=== PATIENT | female | born 1995 | race Caucasian/White ===

== ENCOUNTER → 2018-10-02 11:00 | Outpatient (CLI) | payer OTHER, MEDICAID, SELFPAY ==
[2018-10-02 12:04] LABS: Add Manual Diff / Slide Review NO; Appearance Urine UA CLEAR; Basophils Absolute Auto 0 /uL (0-100); Basophils Percent Auto 0.3 % (0-2); Bilirubin Urine UA NEGATIVE (NEGATIVE); Color Urine UA YELLOW; Eosinophils Absolute Auto 100 /uL (0-450); Eosinophils Percent Auto 0.6 % (2-4); Glucose Urine UA NEGATIVE (Negative); Hematocrit 40.2 % (36-46); Ketones Urine UA NEGATIVE (NEGATIVE); Leukocyte Esterase Urine UA NEGATIVE (NEGATIVE); Lymphocytes Absolute Auto 1900 /uL (1100-4500); Lymphocytes Percent Auto 21.2 % (25-40); Mean Corpuscular HGB Conc 34.8 % (30-36); Mean Corpuscular Hemoglobin 30.9 PG (26-34); Mean Corpuscular Volume 88.7 fL (80-100); Monocytes Absolute Auto 600 /uL (0-900); Monocytes Percent Auto 6.8 % (3-14); Neutrophils Absolute Auto 6300 /uL (1500-7000); Neutrophils Percent Auto 71.1 % (50-75); Nitrite Urine UA NEGATIVE (Negative); Occult Blood Urine UA TRACE-LYSED (Negative); Platelet Count 184 X10^3/uL (150-400); Protein Urine UA 1+ (Negative); Red Blood Cell Count 4.54 X10^6/uL (4.0-5.2); Red Cell Distribution Width 12.7 % (11.6-14.8); Specific Gravity Urine UA 1.025 (1.000-1.035); Urobilinogen Urine UA 0.2 E.U./dL (0.2); White Blood Cell Count 8.8 X10^3/uL (4.5-11.0); pH Urine UA 5.5 (4.5-8.0)
[2018-10-02 15:18] LABS: Hepatitis B Surface Antigen NEGATIVE s/c (NEGATIVE); Rubella Antibody IgG 11.1 IU/mL (>15)
[2018-10-02 15:34] LABS: HIV 1 and 2 Antibody NEGATIVE (NEGATIVE); Hep C Virus Ab w/Reflex Quant NEGATIVE s/c (NEGATIVE)
[2018-10-04 13:12] LABS: RPR Screen Nonreactive (Nonreactive)
[2018-10-04 14:56] LABS: Varicella IgG Antibody < 135.00 Index (< 135.00)
== END ==
PROVIDERS: Visit Provider Specialist
DX: Z34.91 Encounter for supervision of normal pregnancy, unspecified, first trimester (principal)
CPT/HCPCS: 36415; 80055; 81003; 86703; 86787; 86803; 86850; 86900; 86901; 87077; 87086

== ENCOUNTER → 2018-12-07 14:51 | Outpatient (CLI) | payer OTHER, MEDICAID, SELFPAY ==
[2018-12-12 16:23] LABS: AFP, Serum 30.4 ng/mL; Calc Gestational Age 18.1; Cigarette Smoker NOT GIVEN; Donated Egg NOT GIVEN; Donor Egg Age NOT GIVEN; Estriol, Free 1.29 ng/mL; Inhibin A, Dimeric 113 pg/mL; Maternal Weight 157 lbs; Number of Fetuses NOT GIVEN; Previous Pregnancy Down Syndro NOT GIVEN; hCG, MoM 0.72; hCG, Serum 16.5 IU/mL
== END ==
PROVIDERS: Visit Provider Specialist
DX: Z34.82 Encounter for supervision of other normal pregnancy, second trimester (principal); Z3A.18 18 weeks gestation of pregnancy
CPT/HCPCS: 36415; 82105; 82677; 84702; 86336

== ENCOUNTER → 2018-12-21 10:03 | Outpatient (CLI) | payer OTHER, MEDICAID, SELFPAY ==
--- NOTE | 2018-12-21 10:04 | DI.US.S_ITS ---
PROCEDURE: US OB >= 14 WEEKS FETUS INDICATIONS: ANATOMY SCAN OUTSIDE/PRIOR DATING DATA: Last menstrual period (LMP): 08/02/18. LMP-based estimated date of delivery (KILEY): 05/11/19. First dating scan (date and location): 10/02/[address] Mendoza. Estimated date of delivery (KILEY) from first dating scan: 05/08/19, by Dr. Mendoza. TECHNIQUE: Real-time scanning was performed of the fetus, with image documentation and biometric measurements. Endovaginal scanning: Not needed for this study COMPARISON: [employer] [facility], , OB >= 14 WEEKS FETUS, 12/07/2018, 14:35. FINDINGS: General: A single living intrauterine gestation is present. Presentation: Vertex. Placenta: Placental position is anterior, without previa. Amniotic fluid index: 14.9 cm, normal range is 5-24 cm. heart rate: 150 beats per minute. Maternal cervical canal: 3.2 cm long. Normal lower limit is 2.5 cm. biometrics: Biparietal diameter: 4.7 cm, 20 weeks 1 day Head circumference: 17.7 cm, 20 weeks 1 day Abdominal circumference: 15.2 cm, 20 weeks 3 days Femur length: 3.2 cm, 19 weeks 6 days Estimated gestational age from initial scan: Findings today's Composite gestational age from present scan: The 20 weeks 1 days Estimated weight and percentile: 335 g, 37th percentile Measurement variability for biometric dating: +/- 7 days from 14 weeks to 15 weeks 6 days gestation, +/- 10 days from 16 weeks to 21 weeks 6 days gestation, +/- 2 weeks from 22 weeks to 27 weeks 6 days gestation, +/- 3 weeks for 28 weeks gestation or later. weight reference: 4500 g or EFW >90/95% is considered macrosomia or large for gestational age. EFW <10% is small for gestational age. EFW 5% or less is considered intra-uterine growth restriction. Anatomic survey: Neuro: Ventricles are non-dilated at less than 10 mm. Cisterna magna is normal at 3-11 mm. Cerebellum is normal in size and morphology. Nuchal skin fold: Normal at less than 6 mm between 14-21 weeks gestational age. Face: Nose and lips, facial profile are normal. Spine: No evidence for spina bifida. Heart: 4-chambered heart is present, with normal ventricular outflow tracts. Diaphragm: Diaphragm is intact. Stomach: Left-sided stomach is present. Kidneys: No hydronephrosis. Normal is less than 5 mm in 2nd trimester, less than 7 mm in 3rd trimester. Cord: 3-vessel cord has orthotopic insertion. Bladder: Normal in size. Extremities: All 4 extremities identified. IMPRESSION: Appropriate interval growth, no anomaly seen. The delivery date is projected to be centered on 05/08/19 based on the first OB ultrasound performed by Dr. Mendoza. Dictated by: Pastor Be M.D. on 12/21/2018 at 11:52 Approved by: Pastor Be M.D. on 12/21/2018 at 12:08
== END ==
PROVIDERS: Visit Provider Specialist
DX: Z36.89 Encounter for other specified antenatal screening (principal); Z3A.20 20 weeks gestation of pregnancy
CPT/HCPCS: 76811

== ENCOUNTER → 2019-01-17 11:22 | Outpatient (CLI) | payer OTHER, MEDICAID, SELFPAY ==
[2019-01-17 13:00] LABS: Hematocrit 40.5 % (36-46); Hemoglobin 13.6 g/dL (12.0-16.0)
[2019-01-17 14:31] LABS: GTT (PREG) 1 Hour PP 50gm Dose 133 mg/dL (76-139)
== END ==
PROVIDERS: Visit Provider Specialist
DX: Z34.90 Encounter for supervision of normal pregnancy, unspecified, unspecified trimester (principal); Z3A.26 26 weeks gestation of pregnancy
CPT/HCPCS: 36415; 82950; 85014; 85018

== ENCOUNTER → 2019-04-18 09:40 | Outpatient (CLI) | payer OTHER, MEDICAID, SELFPAY ==
[2019-04-19 14:21] LABS: Strep Grp B PCR POS for Grp B Strep
== END ==
PROVIDERS: Visit Provider Specialist
DX: Z34.83 Encounter for supervision of other normal pregnancy, third trimester (principal)
CPT/HCPCS: 87186; 87653

== ENCOUNTER 2019-05-03 00:15 | Inpatient (IN) | payer OTHER, MEDICAID, SELFPAY ==
[2019-05-03] MEDS: fentaNYL 100 MCG/2 ML INJ IV ×2 (05:15→08:45)
[2019-05-03 05:48] LABS: Basophils Absolute Auto 100 /uL (0-100); Basophils Percent Auto 0.4 % (0-2); Eosinophils Absolute Auto 100 /uL (0-450); Eosinophils Percent Auto 0.4 % (2-4); Hematocrit 39.5 % (36-46); Hemoglobin 13.4 g/dL (12.0-16.0); Lymphocytes Absolute Auto 2600 /uL (1100-4500); Lymphocytes Percent Auto 15.3 % (25-40); Mean Corpuscular HGB Conc 33.9 % (30-36); Mean Corpuscular Volume 85.6 fL (80-100); Monocytes Absolute Auto 1200 /uL (0-900); Monocytes Percent Auto 6.9 % (3-14); Neutrophils Absolute Auto 12900 /uL (1500-7000); Red Blood Cell Count 4.61 X10^6/uL (4.0-5.2); Red Cell Distribution Width 12.7 % (11.6-14.8); White Blood Cell Count 16.8 X10^3/uL (4.5-11.0)
[2019-05-03 05:50] LABS: Add Manual Diff / Slide Review SLIDE REVIEW
[2019-05-03 06:44] LABS: Platelet Count 144 X10^3/uL (150-400); Platelet Estimate Adequate on smear
[2019-05-03 06:45] LABS: RBC Morphology Normal Morphology
--- NOTE | 2019-05-03 08:07 | PM.OBHP.1 ---
OB HPI Date/Time Date of admission: 05/03/19 Date Patient Seen: 05/03/19 Time Patient Seen: 08:07 History of Present Condition Chief complaint: : 2 Para: 0 Estimated Date of Delivery: 05/11/19 Estimated Gestational Age (weeks): 38 Narrative: Minerva Mcintosh is a 24 year old female admitted in active labor History of Present care: good care, initiated at week # (8), number of visits (12) and pounds weight gain (41) Dating criteria: LMP confirmed by 1st trimester US Ultrasounds: normal mid trimester US Obstetrical complications: none Medical complications: none Preadmission Labs Blood type: A (+) positive -: Antibody screen: negative, GBS status: positive, HBsAG: negative, HIV: negative and RPR/VDLR: negative -: Chlamydia screen: not detected and Gonorrhea screen: not detected -: Rubella: not immune and Varicella: not immune HCAB: negative PAP: Abnormal (LGSIL) Quad screen: Normal 1 hr GTT: 133 Evaluation Evaluation Baseline heart rate: 130 Variability: Moderate (11-25) monitor accelerations: Present monitor decelerations: Absent Contraction Frequency (minutes): 5 Uterine Contraction Intensity: Strong/Firm Category of Tracing: I Cervical dilation (cm): 3 Cervical effacement (%): 90 station: -2 Laboratory results: Laboratory Tests 05/03/19 05/03/19 05:00 05:00 WBC 16.8 H RBC 4.61 Hgb 13.4 Hct 39.5 MCV 85.6 MCH 29.0 MCHC 33.9 RDW 12.7 Plt Count 144 L Neut % (Auto) 77.0 H Lymph % (Auto) 15.3 L [place] % (Auto) 6.9 Eos % (Auto) 0.4 L Baso % (Auto) 0.4 Neut # (Auto) 69739 H Lymph # (Auto) 2600 [place] # (Auto) 1200 H Eos # (Auto) 100 Baso # (Auto) 100 Platelet Estimate Adequate on smear Plt Morphology Comment RBC Morphology Normal morphology Blood Type A Positive Antibody Screen Negative PFSH Medical History (Updated 05/03/19 @ 08:10 by Lyn Mendoza MD) Anxiety (Acute) Hx of migraines (Acute) Seizure (Acute) Surgical History (Updated 05/03/19 @ 08:10 by Lyn Mendoza MD) History of tonsillectomy (Acute) Meds Home Medications and Allergies Home Medications Medication Instructions Recorded Confirmed Type omeprazole 40 mg capsule,delayed 40 mg PO DAILY #30 cap 04/04/19 Rx release Allergies Allergy/AdvReac Type Severity Reaction Status Date / Time Penicillins AdvReac Mild Hives Verified 05/03/19 07:56 azithromycin AdvReac Hives Verified 05/03/19 07:56 lavender (Lavandula AdvReac Verified 05/03/19 07:56 angustifolia) Review of Systems Review of Systems Narrative: Contractions but no rupture membranes. No signs or symptoms of preeclampsia. Good movement. ROS Unobtainable: All systems reviewed & are unremarkable except as noted in HPI and below Exam Vital Signs (past 8 hours): Blood pressure 125/72, pulse of 92, temperature 98.4? Narrative Exam Narrative: HEENT exam within normal limits. Lungs are clear to auscultation percussion. Heart is regular rate and rhythm no S3-S4 or murmurs. Abdomen is gravid. Extremities without edema and nontender. Objective Labs Result Diagrams: 05/03/19 05:00 Labs: Laboratory Results - last 24 hr 05/03/19 05/03/19 05:00 05:00 WBC 16.8 H RBC 4.61 Hgb 13.4 Hct 39.5 MCV 85.6 MCH 29.0 MCHC 33.9 RDW 12.7 Plt Count 144 L Neut % (Auto) 77.0 H Lymph % (Auto) 15.3 L [place] % (Auto) 6.9 Eos % (Auto) 0.4 L Baso % (Auto) 0.4 Neut # (Auto) 80310 H Lymph # (Auto) 2600 [place] # (Auto) 1200 H Eos # (Auto) 100 Baso # (Auto) 100 Platelet Estimate Adequate on smear Plt Morphology Comment RBC Morphology Normal morphology Blood Type A Positive Antibody Screen Negative Assessment and Plan Assessment and Plan Assessment and Plan narrative: 38 week gestation in active labor. Anticipate vaginal delivery.
[2019-05-03 08:27] VITALS: BP 125/72
[2019-05-03] MEDS: LACTATED RINGERS 1,000 ML 100 ML IV ×3 (08:44→11:51)
[2019-05-03] MEDS: CLINDAMYCIN 900 MG/50 ML PIGGYBACK 50 MG IV (08:45)
[2019-05-03] MEDS: OXYTOCIN PREMIX 30 UNIT/500 ML PLAST..BAG IV (11:36)
--- NOTE | 2019-05-03 11:38 | PM.AN.REGBLK ---
Regional Block Pre-procedure Procedure: Continuous Lumbar Epidural for L&D Attending OB provider: Lyn Mendoza PMH/ROS narrative: 24 y/o term labor. Healthy, no complications. Hx: No personal or family history of anesthesia problems. ASA Class: II Labs: Hct 39.5 % (36-46) 05/03/19 05:00 Plt Count 144 X10^3/uL (150-400) L 05/03/19 05:00 Medications: Current Medications Generic Name Dose Route Start Last Admin Trade Name Freq PRN Reason Stop Dose Admin Calcium Carbonate 1,000 mg 05/03/19 04:38 Tums PO Q2HR PRN Dyspepsia Fentanyl 100 mcg 05/03/19 04:38 05/03/19 08:45 Sublimaze IV 100 mcg Q1H PRN Administration Pain, Severe (7-10) Lactated Ringer's 1,000 mls @ 100 mls/hr 05/03/19 04:45 05/03/19 10:50 Lactated Ringers IV 100 mls/hr CONT TATO Administration Clindamycin Phosphate 900 mg in 50 mls @ 50 mls/hr 05/03/19 04:45 05/03/19 08:45 Cleocin IV 50 mls/hr Q8H TATO Administration FENT 2MCG/ML BUPIV 0.125% EPI 200 mcg in 100 mls @ 0 mls/hr 05/03/19 09:30 Fentanyl/Bupiv/Ns 2mcg/Ml - 0.125% EPIDURAL CONT TATO As Directed Oxytocin/Lactated Ringer's 30 unit in 500 mls @ 3 mls/hr 05/03/19 11:27 05/03/19 11:36 Oxytocin Premix IV 3 milliunit/min TITRATE TATO 3 mls/hr Administration Protocol 3 MILLIUNIT/MIN Naloxone HCl 0.2 mg 05/03/19 04:38 Narcan IV Q2MIN PRN Opiate Reversal Ondansetron HCl 4 mg 05/03/19 04:38 Zofran IV Q4HR PRN Nausea And Vomiting Allergies: Allergies Allergy/AdvReac Type Severity Reaction Status Date / Time Penicillins AdvReac Mild Hives Verified 05/03/19 07:56 azithromycin AdvReac Hives Verified 05/03/19 07:56 lavender (Lavandula AdvReac Verified 05/03/19 07:56 angustifolia) Procedure Insertion date: 05/03/19 Insertion time: 10:05 Prep/Local: betadine x3 Interspace: L2-3 Patient position: sitting Needle: 18 gauge Hustead Loss of resistance with: saline PATEL at (cm): 4 Catheter placed at SKIN (cm): 9 Catheter in SPACE (cm): 5 Insertion: No CSF, No Blood, No Paresthesia with insertion, No Paresthesia with injection and No Test dose reaction Initial Medications TEST DOSE time: 10:15 TEST DOSE: 1.5% lidocaine with epinephrine 1:200k (mL): 3 BOLUS DOSE time: 10:20 BOLUS DOSE (mL): 3 BOLUS DOSE med: other (infusate, via PCEA) Infusion INFUSION: 0.125% bupivacaine and with fentanyl 2 mcg/mL Subsequent interventions: CSE: 27g Pencan through Hustead. Clear CSF. 1mL o.25% bupiv. 1300: 3mL 0.25% bupiv bolus, rate increased from 6 to 10mL/h. Post-procedure Anesthesia time START: 10:05 Anesthesia time END: 18:15 Post-procedure Anesthesia Assessment: Yes CV function: HR/BP stable and Yes Resp function: RR/sat/airway adequate
[2019-05-03] MEDS: FENT 2MCG/ML BUPIV 0.125% EPI 200 MCG/100 ML PLAST..BAG EPIDURAL (17:14)
--- NOTE | 2019-05-03 18:32 | P.PCNOB_ITS ---
Events: Labor Augmentation Labor & Delivery Delivery date: 05/03/19 Intrapartal events: Prolonged 2nd Stage > 2.5 hours Delivery augmentation: pitocin Delivery monitor: external FHT and external uterine Route of delivery: vacuum extraction Indication for instrumentation: maternal exhaustion L&D Laceration Description: Vaginal - 1st Degree Delivery repair: chromic (3-0) Estimated blood loss (mL): 200 Anesthesia type: Epidural Narrative: Patient arrived on Labor and delivery in active labor. She received fentanyl followed by epidural for pain control. heart tones category 1 to category 2 throughout labor. She received IV clindamycin for positive group B strep culture. After 3 hours patient was exhausted so decision was made to proceed with vacuum assisted delivery. The vacuum was placed for total of 3 contractions with delivery of the head with the 3rd contraction. The infant was delivered and placed on maternal abdomen. After the cord stopped pulsating the cord was clamped, cut, and cord bloods obtained. Placenta delivered spontaneously, intact, with 3 vessels. There were no cervical or perineal tears. There was a first-degree vaginal tear that was repaired with 3 0 Polysorb suture. Estimated blood loss 200 cc. Both infant and mother doing well. Male baby weighed 7 lb 1 oz. [place] Baby 1: Infant gender: Male Presentation: vertex position: Right Occiput Anterior Placenta delivery description: Spontaneous cord vessel description: 3 Vessels score (1 min): 8 score (5 min): 9 Plan for aftercare: Routine post vaginal delivery
[2019-05-03] MEDS: IBUPROFEN 600 MG TABLET PO (20:49)
[2019-05-04] MEDS: IBUPROFEN 600 MG TABLET PO ×3 (05:51→20:02)
[2019-05-04 06:42] LABS: Add Manual Diff / Slide Review NO; Basophils Absolute Auto 0 /uL (0-100); Basophils Percent Auto 0.3 % (0-2); Eosinophils Absolute Auto 0 /uL (0-450); Eosinophils Percent Auto 0.2 % (2-4); Hematocrit 33.1 % (36-46); Hemoglobin 11.4 g/dL (12.0-16.0); Lymphocytes Absolute Auto 2400 /uL (1100-4500); Lymphocytes Percent Auto 15.7 % (25-40); Mean Corpuscular HGB Conc 34.3 % (30-36); Mean Corpuscular Hemoglobin 29.2 PG (26-34); Mean Corpuscular Volume 85.1 fL (80-100); Monocytes Absolute Auto 1200 /uL (0-900); Monocytes Percent Auto 8.2 % (3-14); Neutrophils Absolute Auto 11400 /uL (1500-7000); Neutrophils Percent Auto 75.6 % (50-75); Platelet Count 130 X10^3/uL (150-400); Red Blood Cell Count 3.89 X10^6/uL (4.0-5.2); Red Cell Distribution Width 12.8 % (11.6-14.8); White Blood Cell Count 15.1 X10^3/uL (4.5-11.0)
[2019-05-04] MEDS: DOCUSATE 100 MG CAPSULE PO (09:17)
[2019-05-04] MEDS: ACETAMINOPHEN 325 MG TABLET 650 MG PO ×3 (09:17→23:59)
[2019-05-04 15:08] VITALS: TEMP 36.6
--- NOTE | 2019-05-04 17:23 | PM.OBPN.1 ---
Subjective - OB Subjective Patient comments: no complaints [place] baby status: doing well [place] feeding status: exclusively breast feeding Date Patient Seen: 05/04/19 Time Patient Seen: 17:23 Exam Vital Signs (past 8 hours): Blood pressure 112/68, pulse 74, temperature 98.3?- 05/04/19 15:08 Temperature 97.8 F Narrative Exam Narrative: Abdomen is soft, nontender. Uterus is firm, at U, nontender. Mild lochia. Extremities without edema and nontender. Objective Labs Result Diagrams: 05/04/19 06:25 Labs: Laboratory Results - last 24 hr 05/04/19 06:25 WBC 15.1 H RBC 3.89 L Hgb 11.4 L Hct 33.1 L MCV 85.1 MCH 29.2 MCHC 34.3 RDW 12.8 Plt Count 130 L Neut % (Auto) 75.6 H Lymph % (Auto) 15.7 L [place] % (Auto) 8.2 Eos % (Auto) 0.2 L Baso % (Auto) 0.3 Neut # (Auto) 37583 H Lymph # (Auto) 2400 [place] # (Auto) 1200 H Eos # (Auto) 0 Baso # (Auto) 0 Assessment & Plan Assessment and Plan (1) Vacuum-assisted vaginal delivery: Status: Acute Assessment and plan: Patient is doing well . Routine care Current Visit: Yes Plan day: 1 plan OB: routine care Time Spent With Patient Time: Total time spent is greater than 50% in coordination of care (as documented) at patient's floor/unit and/or counseling patient: Time with patient: less than 15 minutes
[2019-05-04] MEDS: LANOLIN OINT 7 GM 1 APPLIC TOP ×2 (21:43→23:59)
[2019-05-05] MEDS: IBUPROFEN 600 MG TABLET PO (06:17)
--- NOTE | 2019-05-05 09:38 | PM.OBDS.1 ---
Discharge Providers Provider Date of admission: 05/03/19 00:15 Discharge Date: 05/05/19 Consults: 05/03/19 04:38 Consult to Anesthesiology Urgent Comment: Consulting Provider: Anesthesiologist Reason for consultation: Epidural Has provider been notified: No 05/04/19 18:28 Consult to [place] Routine Comment: Discharge provider: Lyn Mendoza MD Summary Hospital Course Date Patient Seen: 05/05/19 Time Patient Seen: 09:41 Procedures: epidural catheter, Pitocin augmentation of labor, vacuum assisted vaginal delivery Hospital Course: Patient arrived on labor and delivery in active labor. She received an epidural catheter for pain control. She received Pitocin augmentation of labor. She had a vacuum assisted vaginal delivery for maternal exhaustion. Both she and the baby did well . Peripartum Data Delivery Method: Assisted Delivery (Vacuum assisted vaginal delivery) Laceration description: Vaginal - 1st Degree complications: none [place] 1: Gender: Male Disposition of : home Discharge Diagnosis (1) Vacuum-assisted vaginal delivery: Status: Acute Status at Discharge Cognitive/behavioral status at discharge: oriented Functional status at discharge: independent ambulation Overall status at discharge: patient is back to baseline Time Spent with Patient Time attestation: Total time spent providing and/or coordinating discharge services: Time spent: Less than 30 minutes Objective Labs Result Diagrams: 05/04/19 06:25 Exam Vital Signs (past 8 hours): Blood pressure 115/71, pulse 78, temperature 98.5? Narrative Exam Narrative: Abdomen is soft, nontender. Uterus is firm, U -1, nontender. Repair is intact. Extremities with trace edema and nontender. Blood type is A positive and she is rubella nonimmune so will receive the MMR prior to discharge. She received the Tdap in the 3rd trimester Discharge Plan Discharge Plan Patient Disposition: Home Discharge orders & Medications Prescriptions: New ibuprofen 600 mg Tablet 600 mg PO Q6HR PRN (Reason: Pain, Mild (1-3)) Qty: 20 RF: 0 No Action No Known Home Medications RF: 0 Follow up/Referrals: Lyn Mendoza MD [Physician] - 1 Month Diet/Activity/Treatments Diet: Regular Skin/Wound/Dressing Care Report to your healthcare provider any signs of infection, such as:: chills, fever
[2019-05-05] MEDS: DOCUSATE 100 MG CAPSULE PO (09:50)
[2019-05-05] MEDS: DERMOPLAST SPRAY 20% 60 ML 1 SPRAY TOP (09:50)
[2019-05-05] MEDS: ACETAMINOPHEN 325 MG TABLET 650 MG PO (09:50)
[2019-05-05 10:14] VITALS: BP 115/71; PULSE 78; RESP 16; TEMP 36.9
[2019-05-05] MEDS: MEASLES,MUMPS,RUBELLA VACC/PF 0.5 ML VIAL SUBCUT (10:31)
== END 2019-05-05 11:10 | disposition home or self-care (01) | DRG 560 ==
PROVIDERS: Specialist; Admitting Provider Family Medicine; Visit Provider Family Medicine
DX: O99.824 Streptococcus B carrier state complicating childbirth (principal); O63.1 Prolonged second stage (of labor); O75.81 Maternal exhaustion complicating labor and delivery; Z3A.38 38 weeks gestation of pregnancy; Z37.0 Single live birth; O70.0 First degree perineal laceration during delivery
CPT/HCPCS: 01967; 36415; 59050; 59409; 85025; 86850; 86900; 86901; G0379; J2590; J3010

== ENCOUNTER → 2020-01-10 16:51 | Outpatient (CLI) | payer OTHER, MEDICAID, SELFPAY ==
[2020-01-10 18:44] LABS: HCG Quantitative /Beta subunit < 2.4 mIU/mL
== END ==
PROVIDERS: Referring Provider Specialist; Visit Provider Specialist
DX: N92.6 Irregular menstruation, unspecified (principal)
CPT/HCPCS: 36415; 84702

== ENCOUNTER → 2020-11-19 09:00 | Outpatient (CLI) | payer OTHER, MEDICAID, SELFPAY ==
[2020-11-19 09:41] LABS: Appearance Urine UA CLEAR; Bilirubin Urine UA NEGATIVE (NEGATIVE); Color Urine UA YELLOW; Glucose Urine UA NEGATIVE (Negative); Ketones Urine UA NEGATIVE (NEGATIVE); Leukocyte Esterase Urine UA NEGATIVE (NEGATIVE); Nitrite Urine UA NEGATIVE (Negative); Occult Blood Urine UA NEGATIVE (Negative); Protein Urine UA NEGATIVE (Negative); Urobilinogen Urine UA 0.2 E.U./dL (0.2)
[2020-11-19 10:14] LABS: Add Manual Diff / Slide Review NO; Basophils Absolute Auto 0 /uL (0-100); Basophils Percent Auto 0.4 % (0-2); Eosinophils Absolute Auto 100 /uL (0-450); Eosinophils Percent Auto 0.8 % (2-4); Hematocrit 41.7 % (36-46); Hemoglobin 14.2 g/dL (12.0-16.0); Lymphocytes Absolute Auto 2100 /uL (1100-4500); Lymphocytes Percent Auto 21.6 % (25-40); Mean Corpuscular HGB Conc 33.9 % (30-36); Mean Corpuscular Hemoglobin 30.5 PG (26-34); Mean Corpuscular Volume 89.9 fL (80-100); Monocytes Absolute Auto 600 /uL (0-900); Monocytes Percent Auto 5.9 % (3-14); Neutrophils Absolute Auto 6800 /uL (1500-7000); Neutrophils Percent Auto 71.3 % (50-75); Red Blood Cell Count 4.64 X10^6/uL (4.0-5.2); Red Cell Distribution Width 12.6 % (11.6-14.8); White Blood Cell Count 9.5 X10^3/uL (4.5-11.0)
[2020-11-19 10:51] LABS: Platelet Count 173 X10^3/uL (150-400)
[2020-11-20 08:09] LABS: RPR Screen Non Reactive (Non Reactive)
[2020-11-20 11:22] LABS: Varicella IgG Antibody <135 index (Immune >165)
[2020-11-20 17:04] LABS: Hepatitis B Surface Antigen NEGATIVE s/c (NEGATIVE); Rubella Antibody IgG 61.5 IU/mL (>15)
[2020-11-20 17:23] LABS: HIV 1 & 2 Ab/Ag 4th Gen Combo NEGATIVE (NEGATIVE); Hep C Virus Ab w/Reflex Quant NEGATIVE s/c (NEGATIVE)
== END ==
PROVIDERS: Referring Provider Specialist; Visit Provider Specialist
DX: Z34.81 Encounter for supervision of other normal pregnancy, first trimester (principal)
CPT/HCPCS: 36415; 80055; 81003; 86787; 86803; 86850; 86900; 86901; 87086; 87389

== ENCOUNTER → 2021-01-15 08:52 | Outpatient (CLI) | payer OTHER, MEDICAID, SELFPAY ==
[2021-01-17 18:37] LABS: AFP, Serum 25.1 ng/mL (.); Estriol, Free 1.46 ng/mL (.); Inhibin A, Dimeric 117.64 pg/mL (.); Inhibin A, MoM 0.79 (.); Maternal Ethnicity Caucasian (.); Maternal Weight 159 lbs (.); Number of Fetuses No (.); OSBR Risk 1 IN 7205 (.); Results Report (.); Test Results *Screen Negative* (.); hCG, MoM 1.06 (.); hCG, Serum 32900 mIU/mL (.)
== END ==
PROVIDERS: Referring Provider Specialist; Visit Provider Specialist
DX: Z34.82 Encounter for supervision of other normal pregnancy, second trimester (principal); Z3A.17 17 weeks gestation of pregnancy
CPT/HCPCS: 36415; 82105; 82677; 84702; 86336

== ENCOUNTER → 2021-02-05 15:09 | Outpatient (CLI) | payer OTHER, MEDICAID, SELFPAY ==
--- NOTE | 2021-02-05 15:11 | DI.US.S_ITS ---
PROCEDURE: US OB >= 14 WEEKS FETUS INDICATIONS: ANATOMY OUTSIDE/PRIOR DATING DATA: First dating scan (date and location): 11/19/2020 . Estimated date of delivery (KILEY) from first dating scan: 06/29/2021 . TECHNIQUE: Real-time scanning was performed of the fetus, with image documentation and biometric measurements. Endovaginal scanning: No COMPARISON: [facility], , OB >= 14 WEEKS FETUS, 01/15/2021, 8:40. FINDINGS: General: A single living intrauterine gestation is present. Presentation: Vertex. Placenta: Placental position is posterior , without previa. Amniotic fluid index: 16.0 cm, normal range is 5-24 cm. heart rate: 139 beats per minute. Maternal cervical canal: 5.6 cm cm long. Normal lower limit is 2.5 cm. biometrics: Biparietal diameter: 20 weeks 1 day Head circumference: 19 weeks 6 days Abdominal circumference: 19 weeks 5 days Femur length: 19 weeks 3 days Estimated gestational age from initial scan: 19 weeks 3 days Composite gestational age from present scan: 19 weeks 6 days Estimated weight and percentile: 302 g; 56 percentile. Measurement variability for biometric dating: +/- 7 days from 14 weeks to 15 weeks 6 days gestation, +/- 10 days from 16 weeks to 21 weeks 6 days gestation, +/- 2 weeks from 22 weeks to 27 weeks 6 days gestation, +/- 3 weeks for 28 weeks gestation or later. weight reference: 4500 g or EFW >90/95% is considered macrosomia or large for gestational age. EFW <10% is small for gestational age. EFW 5% or less is considered intra-uterine growth restriction. Anatomic survey: Neuro: Suboptimally visualized. Nuchal skin fold: Suboptimally visualized. Face: Suboptimally visualized. Spine: No evidence for spina bifida. Heart: 4-chambered heart is present, with normal ventricular outflow tracts. Diaphragm: Diaphragm is intact. Stomach: Left-sided stomach is present. Hyperechoic punctate focus adjacent to the stomach which may represent bowel. Kidneys: No hydronephrosis. Normal is less than 5 mm in 2nd trimester, less than 7 mm in 3rd trimester. Cord: 3-vessel cord has orthotopic insertion. Bladder: Normal in size. Extremities: All 4 extremities identified. IMPRESSION: 1. Single living IUP redemonstrated and interval growth is normal. 2. Limited anatomic survey as above and punctate echogenic foci Luis to the stomach which may represent adjacent bowel. Follow-up examination is recommended. Dictated by: Ben DE LA TORRE Interpreted: Deana Long MD on 02/05/2021 at 17:13 Transcribed by: WING on 02/05/2021 at 17:16 Approved by: Deana Long M.D. on 02/05/2021 at 22:55
== END ==
PROVIDERS: Referring Provider Specialist; Visit Provider Specialist
DX: Z34.82 Encounter for supervision of other normal pregnancy, second trimester (principal); Z3A.20 20 weeks gestation of pregnancy
CPT/HCPCS: 76811; 76817

== ENCOUNTER → 2021-02-16 08:05 | Outpatient (CLI) | payer OTHER, MEDICAID, SELFPAY ==
--- NOTE | 2021-02-16 08:07 | DI.US.S_ITS ---
PROCEDURE: US OB FOLLOW UP INDICATIONS: FOLLOW UP ANATOMY. OUTSIDE/PRIOR DATING DATA: Last menstrual period (LMP): Unknown . LMP-based estimated date of delivery (KILEY): Unknown . First dating scan (date and location): 11/19/2020, physician's office . Estimated date of delivery (KILEY) from first dating scan: 06/29/2021 . TECHNIQUE: Real-time scanning was performed of the fetus, with image documentation. Endovaginal scanning: Not performed COMPARISON: [facility], OB >= 14 WEEKS FETUS, 02/05/2021, 15:29. FINDINGS: A single living intrauterine gestation is present. Presentation: Vertex. Placenta: Placental position is posterior , without previa. Amniotic fluid index: 13.6 cm, normal range is 5-24 cm. heart rate: 140 beats per minute. Maternal cervical canal: 4.9 cm long. Normal lower limit is 2.5 cm. Estimated gestational age from initial scan: 21 weeks 0 days Multiple structures were not well visualized on the previous anatomy scan. The profile, orbits, cerebellum, cisterna magna, lateral ventricles, and nuchal folds appear within normal limits. There is persistence of an echogenic structure either within the stomach or immediately adjacent to the superior lateral aspect of stomach. IMPRESSION: 1. Previously poorly visualized anatomy, as described above. 2. Persistence of an echogenic structure within the stomach or immediately superior lateral to the stomach, of uncertain etiology. Dictated by: Paul Montilla M.D. on 02/16/2021 at 15:18 Approved by: Paul Montilla M.D. on 02/16/2021 at 15:28
== END ==
PROVIDERS: Referring Provider Specialist; Visit Provider Specialist
DX: O28.3 Abnormal ultrasonic finding on antenatal screening of mother (principal); Z3A.21 21 weeks gestation of pregnancy
CPT/HCPCS: 76816; 76817

== ENCOUNTER → 2021-03-12 09:59 | Outpatient (CLI) | payer OTHER, MEDICAID, SELFPAY ==
[2021-03-12 12:07] LABS: Hematocrit 39.9 % (36-46); Hemoglobin 13.7 g/dL (12.0-16.0)
[2021-03-12 12:49] LABS: GTT (PREG) 1 Hour PP 50gm Dose 107 mg/dL (76-139)
[2021-03-13 04:37] LABS: Toxoplasma IgG Interp Negative (.); Toxoplasma gohndii IgG <3.0 IU/mL (0.0-7.1)
[2021-03-15 11:08] LABS: HSV 2 IGG AB < 0.91 index (0.00-0.90); HSV1IGG < 0.91 index (0.00-0.90)
[2021-03-17 15:21] LABS: CF Result Comment: (.)
== END ==
PROVIDERS: Referring Provider Specialist; Visit Provider Specialist
DX: Z34.82 Encounter for supervision of other normal pregnancy, second trimester (principal); Z3A.25 25 weeks gestation of pregnancy
CPT/HCPCS: 36415; 81223; 82950; 85014; 85018; 86695; 86696; 86777; 86778

== ENCOUNTER → 2021-06-02 10:09 | Outpatient (CLI) | payer OTHER, MEDICAID, SELFPAY ==
[2021-06-03 07:37] LABS: Strep Grp B PCR POS for Grp B Strep
== END ==
PROVIDERS: Referring Provider Specialist; Visit Provider Specialist
DX: Z34.83 Encounter for supervision of other normal pregnancy, third trimester (principal); Z3A.36 36 weeks gestation of pregnancy
CPT/HCPCS: 87081; 87186; 87653

== ENCOUNTER 2021-06-18 02:26 | Inpatient (IN) | payer OTHER, MEDICAID, SELFPAY ==
[2021-06-18 03:14] LABS: Basophils Absolute Auto 100 /uL (0-100); Basophils Percent Auto 1.1 % (0-2); Eosinophils Absolute Auto 100 /uL (0-450); Eosinophils Percent Auto 0.8 % (2-4); Hematocrit 38.1 % (36-46); Hemoglobin 13.1 g/dL (12.0-16.0); Lymphocytes Absolute Auto 2600 /uL (1100-4500); Lymphocytes Percent Auto 22.3 % (25-40); Mean Corpuscular HGB Conc 34.3 % (30-36); Mean Corpuscular Hemoglobin 28.6 PG (26-34); Mean Corpuscular Volume 83.2 fL (80-100); Monocytes Absolute Auto 600 /uL (0-900); Monocytes Percent Auto 5.5 % (3-14); Neutrophils Absolute Auto 8200 /uL (1500-7000); Neutrophils Percent Auto 70.3 % (50-75); Platelet Count 180 X10^3/uL (150-400); Red Blood Cell Count 4.57 X10^6/uL (4.0-5.2); Red Cell Distribution Width 13.1 % (11.6-14.8); White Blood Cell Count 11.7 X10^3/uL (4.5-11.0)
[2021-06-18 03:15] LABS: Add Manual Diff / Slide Review SLIDE REVIEW
[2021-06-18 03:24] VITALS: BP 109/68
[2021-06-18 03:36] LABS: RBC Morphology Normal Morphology
[2021-06-18 03:42] LABS: COVID19 -Nasal RAPID Negative (Negative)
--- NOTE | 2021-06-18 08:06 | P.HPOB_ITS ---
OB HPI Date/Time Date of admission: 06/18/21 Date Patient Seen: 06/18/21 Time Patient Seen: 08:06 History of Present Condition Chief complaint: OBS : 3 Para: 1 Estimated Date of Delivery: 05/24/21 Estimated Gestational Age (weeks): 39 Narrative: Edmundelvia Cevallos is a 26 year old female admitted for induction for maternal discomfort Indications Indication for induction OB: maternal discomfort History of Present care: good care, initiated at week # (9), number of visits (11) and p ounds weight gain (35) Dating criteria: LMP confirmed by 1st trimester US Ultrasounds: abnormal US findings Abnormal ultrasound findings: Hyperechoic mass near stomach workup at to is no concern Obstetrical complications: none Medical complications: none Preadmission Labs Blood type: A (+) positive -: Antibody screen: negative, GBS status: positive, HBsAG: negative, HIV: negat [place] and RPR/VDLR: negative -: Chlamydia screen: not detected and Gonorrhea screen: not detected -: Rubella: immune and Varicella: not immune HCAB: negative Quad screen: Normal 1 hr GTT: 107 Prior (ies) History: 05/03/2019 38 week 6 day 7 lb 1.3 oz male vacuum assisted vaginal delivery Evaluation Evaluation Baseline heart rate: 130 Variability: Moderate (11-25) monitor accelerations: Present Monitor Decelerations: Absent Contraction Frequency (minutes): 6 Uterine Contraction Intensity: Moderate Category of Tracing: Reactive Status: Category l Dilation (cm): 2 Effacement (%): 80 station: -1 Position of cervix: mid Consistency: medium PFSH Medical History (Updated 04/09/21 @ 10:04 by Lyn Mendoza MD) Allergic rhinitis Anxiety Hx of migraines LGSIL on Pap smear of cervix (~10/02/18) depression SAB (spontaneous ) (~05/04/18) Seizure (spontaneous vaginal delivery) (~05/03/19) Vacuum-assisted vaginal delivery (~05/03/19) Surgical History (Updated 11/12/20 @ 12:40 by Vale Reid RN) History of tonsillectomy [place] teeth extracted Family History (Updated 11/12/20 @ 12:46 by aVle Reid RN) Father Cancer Esophageal cancer Liver cancer Mother Hypertension Pulmonary emboli Grandfather Cancer Lung cancer Smoker Grandmother No problems noted. Grandfather Cancer Grandmother No problems noted. 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)) occupational status: employed current occupational exposures/hazards: No special ricky needs: No Smoking Status: Never smoker second hand exposure: No alcohol intake: former (pre- : rare) substance use type: does not use Type(s) of exercise: walking and regular exercise frequency: 5-6 times per week Meds Home Medications and Allergies Home Medications Medication Instructions Recorded Confirmed Type prenat.vits,shelbi,[id number] 1 tab PO DAILY 11/12/20 06/18/21 History omeprazole 40 mg capsule,delayed 40 mg PO DAILY #30 cap 02/12/21 06/18/21 Rx release Allergies Allergy/AdvReac Type Severity Reaction Status Date / Time azithromycin AdvReac Intermediate Hives Verified 11/19/20 08:36 lavender (Lavandula AdvReac Intermediate Hives Verified 11/19/20 08:36 angustifolia) Penicillins AdvReac Intermediate Hives Verified 11/19/20 08:36 Review of Systems Review of Systems Narrative: No leakage of fluid. Good movement. Patient began contractions last n ight and came in for evaluation. No headaches, scotomata, epigastric pain. OB Exam Narrative Exam Narrative: Blood pressure 116/63, pulse 62, temperature 36? HEENT exam within normal limits. Lungs are clear to auscultation percussion. Heart is regular rate and rhythm no S3-S4 murmurs. Abdomen is gravid. Fetus is vertex. Extremities without edema and nontender. Objective Labs Result Diagrams: 06/18/21 02:55 Labs: Laboratory Results - last 24 hr 06/18/21 06/18/21 06/18/21 02:30 02:55 02:55 WBC 11.7 H RBC 4.57 Hgb 13.1 Hct 38.1 MCV 83.2 MCH 28.6 MCHC 34.3 RDW 13.1 Plt Count 180 Neut % (Auto) 70.3 Lymph % (Auto) 22.3 L [place] % (Auto) 5.5 Eos % (Auto) 0.8 L Baso % (Auto) 1.1 Neut # (Auto) 8200 H Lymph # (Auto) 2600 [place] # (Auto) 600 Eos # (Auto) 100 Baso # (Auto) 100 Plt Morphology Comment . RBC Morphology Normal morphology SARS-CoV-2 (PCR) Negative Blood Type A Positive Antibody Screen Negative Assessment and Plan Assessment and Plan Assessment and Plan narrative: 39 week gestation admitted for Pitocin induction for maternal discomfort.
[2021-06-18] MEDS: OXYTOCIN PREMIX 30 UNIT/500 ML PLAST..BAG IV (08:40)
[2021-06-18] MEDS: CLINDAMYCIN 900 MG/50 ML PIGGYBACK 50 MG IV (10:29)
--- NOTE | 2021-06-18 16:46 | PM.OBPRVD ---
Labor & Delivery Delivery date: 06/18/21 Induction method: per pitocin protocol Delivery augmentation: rupture of membranes Delivery monitor: external FHT and external uterine Route of delivery: L&D Laceration Description: None Estimated blood loss (mL): 300 Anesthesia Type: Epidural Complications: Patient arrived on Labor and delivery for induction for maternal discomfort. She received IV clindamycin for positive group B strep culture. She was started Pitocin. She was AROM for clear fluid. She received an epidural for pain control. heart tones category 1 to category 2 throughout labor. She delivered spontaneously, over an intact perineum. The viable male infant was placed on the maternal abdomen. After the cord stopped pulsating the cord was clamped, cut, and cord bloods obtained. Placenta delivered spontaneously, intact, with 3 vessels. Pitocin bolus was started to control bleeding. There were no cervical, vaginal, or perineal tears. Both mother doing well. Baby 1: Infant gender: Male Presentation: vertex Position: Right Occiput Anterior Placenta delivery description: Spontaneous Cord Vessel Description: 3 Vessels score (1 min): 8 score (5 min): 9 weight: 7 lb 9 oz Plan for aftercare: Routine care
[2021-06-18] MEDS: IBUPROFEN 600 MG TABLET PO (23:15)
[2021-06-18] MEDS: DERMOPLAST SPRAY 20% 60 ML 1 SPRAY TOP (23:15)
[2021-06-19] MEDS: IBUPROFEN 600 MG TABLET PO ×2 (05:13→11:05)
[2021-06-19 07:27] LABS: Add Manual Diff / Slide Review NO; Basophils Absolute Auto 0 /uL (0-100); Basophils Percent Auto 0.4 % (0-2); Eosinophils Absolute Auto 100 /uL (0-450); Eosinophils Percent Auto 1.1 % (2-4); Hematocrit 31.7 % (36-46); Hemoglobin 10.7 g/dL (12.0-16.0); Lymphocytes Absolute Auto 2500 /uL (1100-4500); Lymphocytes Percent Auto 23.1 % (25-40); Mean Corpuscular HGB Conc 33.8 % (30-36); Mean Corpuscular Hemoglobin 28.7 PG (26-34); Mean Corpuscular Volume 84.9 fL (80-100); Monocytes Absolute Auto 900 /uL (0-900); Monocytes Percent Auto 8.5 % (3-14); Neutrophils Absolute Auto 7400 /uL (1500-7000); Neutrophils Percent Auto 66.9 % (50-75); Platelet Count 128 X10^3/uL (150-400); Red Blood Cell Count 3.74 X10^6/uL (4.0-5.2); Red Cell Distribution Width 13.3 % (11.6-14.8)
--- NOTE | 2021-06-19 08:29 | PM.OBDS.1 ---
Discharge Providers Provider Date of admission: 06/18/21 02:26 Discharge Date: 06/19/21 Consults: 06/18/21 02:38 Consult to Anesthesiology Urgent Comment: Consulting Provider: Anesthesiologist Reason for consultation: Epidural Has provider been notified: No 06/19/21 16:44 Consult to Licensed Insurance Agent Routine Comment: Discharge provider: Lyn Mendoza MD Summary Hospital Course Date Patient Seen: 06/19/21 Time Patient Seen: 08:29 Diagnoses: 39 week gestation with spontaneous vaginal delivery Hospital Course: Patient was admitted for induction for maternal discomfort. She received IV clindamycin for positive group B strep culture penicillin allergy. She received an epidural catheter for pain control. She had a spontaneous vaginal delivery. She is breast-feeding without difficulty. She is urinating and ambulating well. Peripartum Data Delivery Method: Natural Vaginal Laceration Description: None Procedures: IV antibiotics for positive group B strep culture, epidural catheter, spontaneous vaginal delivery. complications: none 1: Gender: Male Disposition of : home Discharge Diagnosis (1) Vaginal delivery: Status: Acute Status at Discharge Cognitive/behavioral status at discharge: oriented Functional status at discharge: independent ambulation Overall status at discharge: patient is progressing back to baseline Time Spent with Patient Time attestation: Total time spent providing and/or coordinating discharge services: Time spent: Less than 30 minutes Objective Labs Result Diagrams: 06/19/21 06:39 Labs: Laboratory Results - last 24 hr 06/19/21 06:39 WBC 11.0 RBC 3.74 L Hgb 10.7 L Hct 31.7 L MCV 84.9 MCH 28.7 MCHC 33.8 RDW 13.3 Plt Count 128 L Neut % (Auto) 66.9 Lymph % (Auto) 23.1 L [place] % (Auto) 8.5 Eos % (Auto) 1.1 L Baso % (Auto) 0.4 Neut # (Auto) 7400 H Lymph # (Auto) 2500 [place] # (Auto) 900 Eos # (Auto) 100 Baso # (Auto) 0 Exam Vital Signs (past 8 hours): Blood pressure 114/68, pulse 75, temperature 98.9? Narrative Exam Narrative: Abdomen is soft, nontender. Uterus is firm, at U, nontender. Extremities are without edema and nontender. Patient's blood type is A positive, she is rubella immune, she received the Tdap in the 3rd trimester. Discharge Plan Discharge Plan Patient Disposition: Home Discharge orders & Medications Prescriptions: Continued prenat.vits,shelbi,[id number] Tablet 1 tab PO DAILY 0RF omeprazole 40 mg capsule,delayed release(DR/EC) 40 mg PO DAILY Qty: 30 5RF Follow up/Referrals: Lyn Mendoza MD [Physician] - 1 Month Diet/Activity/Treatments Diet: Regular Activity: Nothing in vagina for 6 weeks Skin/Wound/Dressing Care Report to your healthcare provider any signs of infection, such as:: chills, fever and increased pain
[2021-06-19] MEDS: ACETAMINOPHEN 325 MG TABLET 650 MG PO (11:38)
[2021-06-19 16:07] VITALS: BP 117/73; PULSE 83; RESP 18; TEMP 36.8
== END 2021-06-19 16:02 | disposition home or self-care (01) | DRG 807 ==
PROVIDERS: Admitting Provider Specialist; Referring Provider Specialist; Visit Provider Specialist
DX: O99.824 Streptococcus B carrier state complicating childbirth (principal); Z37.0 Single live birth; O36.8330 Maternal care for abnormalities of the fetal heart rate or rhythm, third trimester, not applicable or unspecified; Z3A.39 39 weeks gestation of pregnancy; Z20.822 Contact with and (suspected) exposure to COVID-19
CPT/HCPCS: 01967; 36415; 59050; 59400; 85025; 86850; 86900; 86901; 87635; C9803; G0379; J2590